=== PATIENT | female | born 1990 | race Caucasian/White ===

== ENCOUNTER 2018-02-26 15:18 | Emergency (ER) | payer OTHER ==
[~2018-02-26] VITALS: Ht 165.1 cm; Wt 104.3 kg
[2018-02-26 15:49] LABS: BILIRUBIN,URINE NEGATIVE (NEG); CLARITY,URINE CLEAR; COLOR,URINE YELLOW; NITRITE,URINE NEGATIVE (NEG); PH,URINE 7.5; PROTEIN,URINE NEGATIVE (NEG-TRACE); UROBILINOGEN,URINE 0.2 mg/dL (0.2 mg/dL)
[2018-02-26 15:58] LABS: BACTERIA,URINE 0 /HPF (0-FEW); SQUAMOUS EPITHELIAL CELL,UR MOD /LPF
[2018-02-26 16:06] LABS: BASO % 1 % (0-3); EOS # 0.1 x10^3/uL (0.0-0.7); EOS % 1 % (0-3); HEMATOCRIT 41.9 % (36.0-47.0); HEMOGLOBIN 14.5 g/dL (12.0-15.5); LYMPH # 2.1 x10^3/uL (1.0-4.8); LYMPH % 23 % (24-48); MEAN CORPUSCULAR HEMOGLOBIN 29 pg (25-35); MEAN CORPUSCULAR HGB CONC 35 g/dL (31-37); MEAN CORPUSCULAR VOLUME 84 fL (79-100); MONO # 0.7 x10^3/uL (0.0-1.1); MONO % 7 % (0-9); NEUT # 6.1 x10^3uL (1.8-7.7); NEUT % 68 % (31-73); PLATELET COUNT 294 x10^3/uL (140-400); RED BLOOD COUNT 4.97 x10^6/uL (3.50-5.40); RED CELL DISTRIBUTION WIDTH 13.6 % (11.5-14.5); WHITE BLOOD COUNT 8.9 x10^3/uL (4.0-11.0)
[2018-02-26 16:14] LABS: CALCIUM 9.7 mg/dL (8.5-10.1); CREATININE 0.9 mg/dL (0.6-1.0); GFR 75.7; POTASSIUM 3.8 mmol/L (3.5-5.1)
--- NOTE | 2018-02-26 16:19 | PHYS DOC ---
Past Medical History Past Medical History: Other Additional Past Medical Histor: BV, ovarian cysts Past Surgical History: Tonsillectomy Alcohol Use: None Drug Use: None Adult General Chief Complaint Chief Complaint: ABDOMINAL PAIN HPI HPI Patient is a 28 year old female who presents with slight yellow vaginal discharge times one week and started having low mid right and left abdominal pain today. She rates her pain a 6 out of 10 and she took Tylenol earlier today. Patient denies fever, nausea, vomiting, diarrhea. Review of Systems Review of Systems Constitutional: Denies fever or chills [] Eyes: Denies change in visual acuity, redness, or eye pain [] HENT: Denies nasal congestion or sore throat [] Respiratory: Denies cough or shortness of breath [] Cardiovascular: No additional information not addressed in HPI [] GI: Denies abdominal pain, nausea, vomiting, bloody stools or diarrhea [] : Denies dysuria or hematuria [] Musculoskeletal: Denies back pain or joint pain [] Integument: Denies rash or skin lesions [] Neurologic: Denies headache, focal weakness or sensory changes [] Endocrine: Denies polyuria or polydipsia [] All other systems were reviewed and found to be within normal limits, except as documented in this note. Allergies Allergies Allergies Coded Allergies Type Severity Reaction Last Updated Verified azithromycin Allergy Intermediate 02/26/18 Yes cefixime Allergy Intermediate 02/26/18 Yes clarithromycin Allergy Intermediate 02/26/18 Yes Physical Exam Physical Exam Constitutional: Well developed, well nourished, no acute distress, non-toxic appearance. [] HENT: Normocephalic, atraumatic, bilateral external ears normal, oropharynx moist, no oral exudates, nose normal. [] Eyes: PERRLA, EOMI, conjunctiva normal, no discharge. [] Neck: Normal range of motion, no tenderness, supple, no stridor. [] Cardiovascular:Heart rate regular rhythm, no murmur [] Lungs & Thorax: Bilateral breath sounds clear to auscultation [] Abdomen: Bowel sounds normal, soft, no tenderness, no masses, no pulsatile masses. [] Skin: Warm, dry, no erythema, no rash. [] Back: No tenderness, no CVA tenderness. [] Extremities: No tenderness, no cyanosis, no clubbing, ROM intact, no edema. [] Neurologic: Alert and oriented X 3, normal motor function, normal sensory function, no focal deficits noted. [] Psychologic: Affect normal, judgement normal, mood normal. [] Current Patient Data Vital Signs Vital Signs Date Time Temp Pulse Resp B/P (MAP) Pulse Ox O2 Delivery O2 Flow Rate FiO2 02/26/18 15:51 99.0 114 20 138/75 (96) 98 Room Air 99.0 Lab Values Laboratory Tests Test 02/26/18 15:40 02/26/18 15:55 02/26/18 16:36 Urine Collection Type Unknown Urine Color Yellow Urine Clarity Clear Urine pH 7.5 Urine Specific [place] 1.015 Urine Protein Negative mg/dL (NEG-TRACE) Urine Glucose (UA) Negative mg/dL (NEG) Urine Ketones (Stick) Negative mg/dL (NEG) Urine Blood Negative (NEG) Urine Nitrite Negative (NEG) Urine Bilirubin Negative (NEG) Urine Urobilinogen Dipstick 0.2 mg/dL (0.2 mg/dL) Urine Leukocyte Esterase Negative (NEG) Urine RBC 1-2 /HPF (0-2) Urine WBC 1-4 /HPF (0-4) Urine Squamous Epithelial Cells Mod /LPF Urine Bacteria 0 /HPF (0-FEW) Urine Mucus Slight /LPF White Blood Count 8.9 x10^3/uL (4.0-11.0) Red Blood Count 4.97 x10^6/uL (3.50-5.40) Hemoglobin 14.5 g/dL (12.0-15.5) Hematocrit 41.9 % (36.0-47.0) Mean Corpuscular Volume 84 fL (79-100) Mean Corpuscular Hemoglobin 29 pg (25-35) Mean Corpuscular Hemoglobin Concent 35 g/dL (31-37) Red Cell Distribution Width 13.6 % (11.5-14.5) Platelet Count 294 x10^3/uL (140-400) Neutrophils (%) (Auto) 68 % (31-73) Lymphocytes (%) (Auto) 23 % (24-48) L Monocytes (%) (Auto) 7 % (0-9) Eosinophils (%) (Auto) 1 % (0-3) Basophils (%) (Auto) 1 % (0-3) Neutrophils # (Auto) 6.1 x10^3uL (1.8-7.7) Lymphocytes # (Auto) 2.1 x10^3/uL (1.0-4.8) Monocytes # (Auto) 0.7 x10^3/uL (0.0-1.1) Eosinophils # (Auto) 0.1 x10^3/uL (0.0-0.7) Basophils # (Auto) 0.0 x10^3/uL (0.0-0.2) Sodium Level 141 mmol/L (136-145) Potassium Level 3.8 mmol/L (3.5-5.1) Chloride Level 102 mmol/L (98-107) Carbon Dioxide Level 27 mmol/L (21-32) Anion Gap 12 (6-14) Blood Urea Nitrogen 9 mg/dL (7-20) Creatinine 0.9 mg/dL (0.6-1.0) Estimated GFR (Cockcroft-Gault) 75.7 BUN/Creatinine Ratio 10 (6-20) Glucose Level 86 mg/dL (70-99) Calcium Level 9.7 mg/dL (8.5-10.1) Total Bilirubin 0.2 mg/dL (0.2-1.0) Aspartate Amino Transferase (AST) 21 U/L (15-37) Alanine Aminotransferase (ALT) 33 U/L (14-59) Alkaline Phosphatase 73 U/L (46-116) Total Protein 7.7 g/dL (6.4-8.2) Albumin 4.2 g/dL (3.4-5.0) Albumin/Globulin Ratio 1.2 (1.0-1.7) POC Urine HCG, Qualitative Hcg negative (Negative) Laboratory Tests 02/26/18 15:55 Laboratory Tests 02/26/18 15:55 Microbiology 02/26/18 Wet Prep - Final, Complete EKG EKG [] Radiology/Procedures Radiology/Procedures US pelvis Impressions: [facility] [address] [place] [address] IMAGING REPORT Signed PATIENT: AYALA JOSEPH ACCOUNT: [id number] : 1990 LOCATION: ER AGE: 28 SEX: F EXAM STATUS: REG ER ORD. PHYSICIAN: GILA MISTRY APRN REASON: PELCI PAIN/IUD/HX OVARIAN CYST/ PLEASE CHECK APPENDIX PROCEDURE: PELVIS W/TV Examination: Ultrasound pelvis HISTORY: History of pelvic pain COMPARISON: None available FINDINGS: The uterus measures 7.4 x 4.6 x 3.7 cm. The endometrium measures 4.5 mm in diameter. A linear echogenicity identified in the endometrium probably intrauterine contraceptive device. The right ovary measures 3.4 x 1.7 x 1.8 cm. Multiple cystic structures identified in the right and left ovary the largest measuring 1.5 cm probably follicles. The left ovary measures 4.7 x 2.7 x 2.6 cm. There is a cystic structure identified in the left ovary measuring 1.5 cm. Blood flow identified in the right and left ovaries. Small amount of free fluid identified in the pelvis. The appendix could not be identified due to bowel gas. Small amount of fluid identified in the cervix. IMPRESSION: 1. Bilateral ovarian follicles. 2. Intrauterine contraceptive device is identified. 3. The appendix could not be identified due to bowel gas. Electronically signed by: Dany Mccauley MD (02/26/2018 4:44 PM) [facility] DICTATED and SIGNED BY: DANY MCCAULEY MD DATE: 02/26/18 1642 Course & Med Decision Making Course & Med Decision Making Patient is a 28 year old female who presents with slight yellow vaginal discharge times one week and started having low mid right and left abdominal pain today. She rates her nonradiating pain a 6 out of 10 and she took Tylenol earlier today. Patient denies fever, nausea, vomiting, diarrhea. Abdomen is soft and no masses are felt but she does have tenderness to the right left and mid abdominal quadrants. Lungs are clear to auscultation all lobes. Heart rate is regular without murmur. Skin is pink warm and dry. Alert and oriented. Patient states she is sexually active and has an IUD of which she does not have regular periods because of IUD of which she has had placed for last 4 years. Patient states she has a history of ovarian cysts. Patient states she is sexually active but does not think that she currently has sexual transmitted disease but states that she would be treated prophylactically. Completed a pelvic exam and got a culture for chlamydia, gonorrhea, and a wet mount. Patient is treated prophylactically for STDs. She will be treated for Chlamydia with Doxycycline because she is allergic to Azithromycin. Blood work is on unremarkable. Urine is without infection. Pelvic US shows 1. Bilateral ovarian follicles. 2. Intrauterine contraceptive device is identified. 3. The appendix could not be identified due to bowel gas. Patient is discharged with bilateral ovarian cysts. Patient should follow up with her commercial installer and take Ibuprofen for pain. Will be treated prophylactically for the Rocephin. I have spoken with the pharmacy and pharmacy states that as long as her allergy to cephalosporins is minor that it is okay to give her but just watch her closely for about 30 minutes to an hour. I spoke with the patient and she states that her allergy is just a rash and is not anaphylactic. Patient states that she would like to still receive that she is okay with us observing her given her Benadryl if needed. Patient will be given an IM shot of Rocephin and observed for 30-45 minutes before discharge. Pelvic Exam: Autocad present Abdomen: Right, left, mid abdominal tenderness External Genitalia: Normal Skin Speculum: Normal vaginal mucosa, cervical discharge- white/yellow Bimanual: Right and left tenderness adnexal but no masses, No CMT [] Dragon Disclaimer Dragon Disclaimer This electronic medical record was generated, in whole or in part, using a voice recognition dictation system. Departure Departure Impression: Primary Impression: Ovarian cyst Disposition: 01 HOME, SELF-CARE Condition: STABLE Referrals: NO PCP (PCP) Patient Instructions: Ovarian Cyst Additional Instructions: Follow up with your gynecologists as soon as possible. Ibuprofen and heating pad for pain relief. Scripts Doxycycline Hyclate (DOXYCYCLINE HYCLATE) 100 Mg Tablet 1 TAB PO BID for 7 Days, #14 TAB Prov: GILA MISTRY APRN 02/26/18 Problem Qualifiers Primary Impression: Ovarian cyst Laterality: bilateral Qualified Codes: N83.201 - Unspecified ovarian cyst, right side; N83.202 - Unspecified ovarian cyst, left side GILA MISTRY [employer]PA[employer] MAINTENA[employer]CE SUPERVISOR Feb 26, 2018 16:19
[2018-02-26 16:22] LABS: ALBUMIN 4.2 g/dL (3.4-5.0); ALBUMIN/GLOBULIN RATIO 1.2 (1.0-1.7); TOTAL BILIRUBIN 0.2 mg/dL (0.2-1.0); TOTAL PROTEIN 7.7 g/dL (6.4-8.2)
--- NOTE | 2018-02-26 16:48 | RAD ---
Examination: Ultrasound pelvis HISTORY: History of pelvic pain COMPARISON: None available FINDINGS: The uterus measures 7.4 x 4.6 x 3.7 cm. The endometrium measures 4.5 mm in diameter. A linear echogenicity identified in the endometrium probably intrauterine contraceptive device. The right ovary measures 3.4 x 1.7 x 1.8 cm. Multiple cystic structures identified in the right and left ovary the largest measuring 1.5 cm probably follicles. The left ovary measures 4.7 x 2.7 x 2.6 cm. There is a cystic structure identified in the left ovary measuring 1.5 cm. Blood flow identified in the right and left ovaries. Small amount of free fluid identified in the pelvis. The appendix could not be identified due to bowel gas. Small amount of fluid identified in the cervix. IMPRESSION: 1. Bilateral ovarian follicles. 2. Intrauterine contraceptive device is identified. 3. The appendix could not be identified due to bowel gas. Electronically signed by: Dany Melgar MD (02/26/2018 4:44 PM) [facility]
[2018-02-26] MEDS ORDERED: DOXY100T PO (17:39)
[2018-02-26 17:58] VITALS: BP 115/76
[2018-02-26] MEDS ORDERED: cefTRIAXone IM 250 MG VIAL IM ONE (18:00)
[2018-02-27 15:31] LABS: GC PROBE Negative (Negative)
== END 2018-02-26 18:48 | disposition home or self-care (01) ==
LOC: ER 15:18
DX: N83.02 Follicular cyst of left ovary (principal); N83.01 Follicular cyst of right ovary; Z88.1 Allergy status to other antibiotic agents; Z88.8 Allergy status to other drugs, medicaments and biological substances
CPT/HCPCS: 36415; 76830; 76856; 80053; 81001; 81025; 85025; 87491; 87591; 96372; 99285; J0696; Q0111